=== PATIENT | female | born 2000 | race Caucasian/White ===

== ENCOUNTER → 2023-09-02 14:26 | Outpatient (BNVA) | payer OTHER, SELFPAY | PROVIDERS: Visit Provider Registered Nurse Neonatal Intensive Care | DX: J02.9 Acute pharyngitis, unspecified (principal) | CPT/HCPCS: 87880 ==

== ENCOUNTER → 2023-10-13 13:43 | Outpatient (BNVA) | payer OTHER, SELFPAY | PROVIDERS: Visit Provider Nurse Practitioner Family | DX: R42 Dizziness and giddiness (principal) | CPT/HCPCS: 82962 ==

== ENCOUNTER → 2023-10-15 14:10 | Outpatient (BNVA) | payer OTHER, SELFPAY | PROVIDERS: Visit Provider Family Medicine | DX: R73.03 Prediabetes (principal); E66.01 Morbid (severe) obesity due to excess calories | CPT/HCPCS: 80053; 83036; 84439; 84443; 85025 ==

== ENCOUNTER → 2023-12-10 15:32 | Outpatient (BNVA) | payer OTHER, SELFPAY | PROVIDERS: Visit Provider Nurse Practitioner Family | DX: R39.9 Unspecified symptoms and signs involving the genitourinary system (principal) | CPT/HCPCS: 81000; 87077; 87086; 87184 ==

== ENCOUNTER 2024-02-22 09:39 | Emergency (ER) | payer OTHER, MEDICAID, SELFPAY ==
[2024-02-22] VITALS (26 sets, daily range): BP systolic 124–163; BP diastolic 83–112; PULSE 83–114; RESP 17–18; TEMP 36.5; O2SAT 93–99; BMI 44.6
--- NOTE | 2024-02-22 10:00 | ECG_ITS ---
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 Measurements Intervals [place] Rate: 91 P: 42 WI: 170 QRS: 22 QRSD: 70 T: 15 QT: 362 QTc: 445 Interpretive Statements SINUS RHYTHM Normal EKG No previous ECG available for comparison Electronically Signed On 02-22-2024 11:56:55 CDT by Johnny Cameron M.D. [id number]
--- NOTE | 2024-02-22 10:01 | XRR_ITS ---
PROCEDURE INFORMATION: Exam: XR Chest Exam date and time: 02/22/2024 10:27 AM Age: 23 years old Clinical indication: Shortness of breath; Additional info: SOB TECHNIQUE: Imaging protocol: Radiologic exam of the chest. Views: 1 view. COMPARISON: No relevant prior studies available. FINDINGS: Lungs: Unremarkable. No consolidation. Pleural spaces: Unremarkable. No pleural effusion. No pneumothorax. Heart/Mediastinum: Unremarkable. No cardiomegaly. Bones/joints: Unremarkable. XR/XR chest 1V portable [id number] IMPRESSION: No acute findings.
--- NOTE | 2024-02-22 10:02 | W.ED.SOB ---
HPI - SOB/Dyspnea General: Chief Complaint: Anxiety Stated Complaint: light headed, nausea, fast heartbeat when sleeping Time Seen by Provider: 02/22/24 09:50 Source: patient Mode of arrival: ambulatory Limitations: no limitations History of Present Illness: HPI Narrative: 23-year-old female states that she has been having some nausea vomiting, shortness of breath this morning over the last 6 to 8 hours. States she is also had some anxiety states anytime she tries to lay down she feels like she cannot breathe. She denies any pain anywhere denies any fever. Associated symptoms: Reports nausea, palpitations and vomiting; Deny abdominal pain, chest pain or fever(s) Review of Systems Const: Denies: fever(s), chills, body aches or change in appetite ENMT: Denies: throat pain or dental pain Card: Reports: palpitations; Denies: chest pain Resp: Reports: dyspnea GI: Reports: nausea and vomiting; Denies: abdominal pain or diarrhea Musc: Denies: neck pain or back pain Skin/Breast: Denies: rash Neuro: Denies: headache(s) PFSH ED PFSH: Medical History Anxiety Moderate major depression Hirsutism Pre-diabetes Surgical History History of tonsillectomy Family History Denies family history of Colon cancer Ovarian cancer Diabetes Heart disease Breast cancer Hypertension Uterine cancer Thyroid disease Social History Smoking and tobacco/nicotine status: former use of tobacco/nicotine Alcohol intake: current Substance/Drug Use: never Adopted: No service: No Current occupational exposures/hazards: No Current gender identity: Female Female Reproductive History: Para: 0 Physical Exam Const: COMMON NORMALS: no acute distress, patient oriented x3 and healthy appearing HENMT: COMMON NORMALS: normocephalic and atraumatic HEAD & SCALP: normocephalic and atraumatic Neck/C-Spine: COMMON NORMALS: full ROM and supple Chest: COMMONS NORMALS: normal inspection of the chest Resp: COMMON NORMALS: normal respiratory effort, No retractions, No use of accessory muscles and clear to auscultation bilaterally AUSCULTATION: clear to auscultation bilaterally Cardio: COMMON NORMALS: regular rate, regular rhythm and No murmurs present (Cardio) RATE: regular rate RHYTHM: regular rhythm GI: COMMON NORMALS: non-tender Extremity: COMMON NORMALS: normal to inspection and full ROM Neuro: COMMON NORMALS: patient oriented x3, moves all extremities and no focal motor deficits Psych: COMMON NORMALS: mental status grossly normal, Normal thought process present and cooperative THOUGHT PROCESS: Normal thought process present Skin: COMMON NORMALS: no rashes or lesions noted and no wounds GENERAL SKIN EXAM: no rashes or lesions noted Course Vital Signs: Vital signs: Vital Signs Temperature 97.7 F 02/22/24 09:55 Pulse Rate 109 H 02/22/24 12:20 Respiratory Rate 18 02/22/24 10:12 Blood Pressure 124/83 02/22/24 12:20 Pulse Oximetry 97 02/22/24 12:20 Oxygen Delivery Me thod Room Air 02/22/24 09:55 MDM - SOB/Dyspnea Medical Decision Making Patient presents here with dyspnea along with some nausea vomiting she is well-appearing here did have an elevated D-dimer but CT of the chest is normal abdominal exam is benign she stable for discharge we will prescribe her Zofran for home she is follow-up with PCP and return if worsening. Medical Records I reviewed the patient's medical records. Lab Data I reviewed the patient's lab results. 02/22/24 10:08 02/22/24 10:08 Labs/Radiology: Radiology Impressions Chest X-Ray 02/22/24 10:01 IMPRESSION: No acute findings. Chest CTA 02/22/24 10:42 IMPRESSION: 1. Negative for pulmonary embolism. 2. Negative for right heart strain. 3. Negative for aortic aneurysm or dissection 4. Otherwise negative examination Laboratory Results WBC 16.40 10^3/uL (3.29-11.43) H 02/22/24 10:08 RBC 5.15 10^6/uL (3.85-5.65) 02/22/24 10:08 Hgb 14.40 g/dL (11.27-16.99) 02/22/24 10:08 Hct 42.4 % (36-47) 02/22/24 10:08 MCV 82.3 fl (85-98) L 02/22/24 10:08 MCH 28.0 pg (27-33) 02/22/24 10:08 MCHC 34.0 g/dL (30-55) 02/22/24 10:08 RDW 12.9 % (12.1-15.1) 02/22/24 10:08 Plt Count 475 10^3/cmm (157-399) H 02/22/24 10:08 MPV 9.2 fL (7.4-10.4) 02/22/24 10:08 Neut % (Auto) 84.2 % 02/22/24 10:08 Lymph % (Auto) 10.7 % 02/22/24 10:08 [place] % (Auto) 4.3 % 02/22/24 10:08 Eos % (Auto) 0.1 % 02/22/24 10:08 Baso % (Auto) 0.2 % 02/22/24 10:08 Neut # (Auto) 13.82 10^3/uL (1.8-7.7) H 02/22/24 10:08 Lymph # (Auto) 1.8 10^3/uL (0.8-4.8) 02/22/24 10:08 [place] # (Auto) 0.7 10^3/uL (0.2-0.9) 02/22/24 10:08 Eos # (Auto) 0.0 10^3/uL (0.0-0.8) 02/22/24 10:08 Baso # (Auto) 0.0 10^3/uL (0.0-0.1) 02/22/24 10:08 Nucleated RBC % (auto) 0 % 02/22/24 10:08 Nucleated RBCs # 0.0 /100WBC 02/22/24 10:08 D-Dimer 0.90 ug/mLFEU (0-0.59) H 02/22/24 10:08 Sodium 136 mmol/L (136-145) 02/22/24 10:08 Potassium 3.9 mmol/L (3.5-5.1) 02/22/24 10:08 Chloride 104 mmol/L (98-107) 02/22/24 10:08 Carbon Dioxide 17 mmol/L (22-29) L 02/22/24 10:08 Anion Gap 18.9 (5-19) 02/22/24 10:08 BUN 10 mg/dL (6-20) 02/22/24 10:08 Creatinine 0.7 mg/dL (0.5-0.9) 02/22/24 10:08 GFR Calculation 104.6 mL/min (90-130) 02/22/24 10:08 Glucose 144 mg/dL (65-115) H 02/22/24 10:08 POC Glucose 104 mg/dL (70-110) 02/22/24 10:03 Calculated Osmolality 284 mOsm/kg (285-295) L 02/22/24 10:08 Calcium 9.6 mg/dL (8.5-10.5) 02/22/24 10:08 Total Bilirubin 0.3 mg/dL (0.15-1.2) 02/22/24 10:08 AST 18 U/L (0-32) 02/22/24 10:08 ALT 35 U/L (0-33) H 02/22/24 10:08 Alkaline Phosphatase 99 U/L (35-105) 02/22/24 10:08 NT-Pro-B Natriuret Pep < 36 pg/mL (0-125) 02/22/24 10:08 Total Protein 7.9 g/dL (6.6-8.7) 02/22/24 10:08 Albumin 4.2 g/dL (3.5-5.2) 02/22/24 10:08 Globulin 3.7 g/dL (1.3-4.6) 02/22/24 10:08 HCG, Qual Negative (Negative) 02/22/24 10:08 Urine Color Yellow (Yellow) 02/22/24 10:30 Urine Appearance Clear (CLEAR) 02/22/24 10:30 Urine pH 6.5 (5-7) 02/22/24 10:30 Ur Specific [place] 1.015 (1.005-1.030) 02/22/24 10:30 Urine Protein Neg (Negative) 02/22/24 10:30 Urine Glucose (UA) Norm (Normal) 02/22/24 10:30 Urine Ketones Negative (Negative) 02/22/24 10:30 Urine Blood Neg (Negative) 02/22/24 10:30 Urine Nitrate Negative (Negative) 02/22/24 10:30 Urine Bilirubin Neg (Negative) 02/22/24 10:30 Urine Urobilinogen Norm mg/dL (Negative) 02/22/24 10:30 Ur Leukocyte Esterase Negative (Negative) 02/22/24 10:30 All radiology interpretation(s) finalized by discharge EKG Data EKG 1: I personally reviewed and interpreted this EKG as follows: EKG Interpretation Date: 02/22/24 EKG interpretation time: 10:17 Interpretation: nsr hr [address] or t wave abnormalities qrs 70 qtc 410 Discharge Plan Discharge Patient Disposition: Home Clinical Impression: Dyspnea Condition: Stable Prescriptions: New ondansetron 4 mg tablet,disintegrating 4 mg PO Q6H PRN (Reason: nausea and vomiting) Qty: 14 0RF No Action sumatriptan succinate 25 mg tablet See Rx Instructions PO .COMPLEX Qty: 10 0RF Rx Instructions: take 1 tab at onset of headache; if no relief may repeat 1 tab after at least 2 hrs; max = 4 tabs/24 hr PO fluoxetine 40 mg capsule 40 mg PO DAILY Qty: 60 1RF etonogestrel-ethinyl estradiol 0.12-0.015 mg/24 hr ring 1 vag ring vaginal ONCE Qty: 3 3RF Discharge Orders: Discharge ED (Routine); Ordered 02/22/24 Ordered By: Marcial Carballo Referrals: Bill River MD [Primary Care Provider] - 4-7 days Discharge Diet: Advance as tolerated Discharge Activity: Resume usual activity Patient Instructions: Dyspnea (ED) Coding Level of Care Code ED [employer] for Chg August
[2024-02-22 10:08] LABS: Glucose Point of Care 104 mg/dL (70-110)
[2024-02-22 10:13] LABS: Basophils % 0.2 %; Eosinophils % 0.1 %; Hematocrit 42.4 % (36-47); Lymphocytes # 1.8 10^3/uL (0.8-4.8); Lymphocytes % 10.7 %; Mean Corpuscular Volume 82.3 fl (85-98); Mean Platelet Volume 9.2 fL (7.4-10.4); Monocytes # 0.7 10^3/uL (0.2-0.9); Monocytes % 4.3 %; Neutrophils # 13.82 10^3/uL (1.8-7.7); Neutrophils % 84.2 %; Nucleated Red Blood Cells % 0 %; Platelet Count 475 10^3/cmm (157-399); Red Blood Count 5.15 10^6/uL (3.85-5.65); Red Cell Distribution Width 12.9 % (12.1-15.1)
[2024-02-22] MEDS: ondansetron 2 mg/ML SDV 2 mL 4 MG IVP (10:22)
[2024-02-22] MEDS: LORazepam 2 mg/mL INJ 1 mL 1 MG IVP (10:23)
[2024-02-22 10:40] LABS: Add Urine Microscopic? NO; Charge for UA Resulting for Rev
--- NOTE | 2024-02-22 10:42 | CTR_ITS ---
PROCEDURE INFORMATION: Exam: CTA Chest With Contrast Exam date and time: 02/22/2024 11:26 AM Age: 23 years old Clinical indication: Abnormal findings; Abnormal diagnostic tests; Elevated d-dimer; Additional info: SOB TECHNIQUE: Imaging protocol: Computed tomographic angiography of the chest with contrast. Exam focused on the arteries. 3D rendering (Not supervised by radiologist): MIP and/or 3D reconstructed images were created by the technologist. Radiation optimization: All CT scans at this facility use at least one of these dose optimization techniques: automated exposure control; mA and/or kV adjustment per patient size (includes targeted exams where dose is matched to clinical indication); or iterative reconstruction. Contrast material: OMNI 350; Contrast volume: 73 ml; Contrast route: INTRAVENOUS (IV); COMPARISON: CR (CHEST, ) 02/22/2024 10:27 AM RADIATION DOSE METRICS: Total DLP (mGy-cm): 498.92 FINDINGS: Pulmonary arteries: Normal. No pulmonary emboli. Aorta: Unremarkable. No aortic aneurysm. No aortic dissection. Lungs: Unremarkable. No consolidation. No masses. Pleural spaces: Unremarkable. No pneumothorax. No pleural effusion. Heart: Unremarkable. No cardiomegaly. No pericardial effusion. Lymph nodes: Unremarkable. No enlarged lymph nodes. Bones/joints: Unremarkable. No acute fracture. Soft tissues: Unremarkable. CT/CT angio chest PE protcl [id number] IMPRESSION: 1. Negative for pulmonary embolism. 2. Negative for right heart strain. 3. Negative for aortic aneurysm or dissection 4. Otherwise negative examination
[2024-02-22 10:45] LABS: Alanine Aminotransferase 35 U/L (0-33); Albumin Level 4.2 g/dL (3.5-5.2); Alkaline Phosphatase 99 U/L (35-105); Anion Gap 18.9 (5-19); Aspartate Amino Transferase 18 U/L (0-32); Blood Urea Nitrogen 10 mg/dL (6-20); Calcium 9.6 mg/dL (8.5-10.5); Carbon Dioxide 17 mmol/L (22-29); Chloride 104 mmol/L (98-107); Creatinine Clr Calc Pharmacy 176.4595; Globulin 3.7 g/dL (1.3-4.6); Glomerular Filtration Rate 104.6 mL/min (90-130); Glucose 144 mg/dL (65-115); NT Pro B Type Natriuretic Pept < 36 pg/mL (0-125); Osmolality Calculated 284 mOsm/kg (285-295); Potassium 3.9 mmol/L (3.5-5.1); Sodium 136 mmol/L (136-145); Total Bilirubin 0.3 mg/dL (0.15-1.2); Total Protein 7.9 g/dL (6.6-8.7)
[2024-02-22 11:06] LABS: HCG, Serum Qual Negative (Negative)
[2024-02-22 11:06] LABS: Bilirubin Urine Neg (Negative); Blood Urine Neg (Negative); Glucose Urine UA Norm (Normal); Ketones Urine Negative (Negative); Leukocyte Esterase Urine Negative (Negative); Nitrate Urine Negative (Negative); Protein Urine Neg (Negative); Specific Gravity, Urine 1.015 (1.005-1.030); Urine Appearance Clear (CLEAR); Urine Color Yellow (Yellow); Urobilinogen Urine Norm (Negative); pH Urine 6.5 (5-7)
[2024-02-22] MEDS: iohexol 350 mg/mL 500 mL Btl (per mL) IV (11:32)
== END 2024-02-22 12:37 | disposition home or self-care (01) ==
PROVIDERS: Emergency Provider Emergency Medicine; PCP Family Medicine
DX: R06.00 Dyspnea, unspecified (principal); Z87.891 Personal history of nicotine dependence
CPT/HCPCS: 36416; 71045; 71275; 80053; 81003; 82962; 83880; 84703; 85025; 85378; 93005; 96374; 96375; 99285; J2060; J2405; Q9967

== ENCOUNTER → 2024-03-16 13:34 | Outpatient (BNVA) | payer OTHER, MEDICAID, SELFPAY | PROVIDERS: PCP Family Medicine; Visit Provider Registered Nurse Neonatal Intensive Care | DX: Z20.822 Contact with and (suspected) exposure to COVID-19 (principal) | CPT/HCPCS: 87426 ==

== ENCOUNTER → 2024-03-17 11:05 | Outpatient (BNVA) | payer OTHER, MEDICAID, SELFPAY | PROVIDERS: PCP Family Medicine; Visit Provider Registered Nurse Neonatal Intensive Care | DX: Z20.822 Contact with and (suspected) exposure to COVID-19 (principal) | CPT/HCPCS: 87426 ==

== ENCOUNTER 2024-04-26 11:05 | Outpatient (CLI) | payer OTHER, MEDICAID, SELFPAY | END 2024-04-26 11:06 | disposition home or self-care (01) | LOC: SLEEP 11:07 | PROVIDERS: PCP Family Medicine; Visit Provider Family Medicine | DX: G47.33 Obstructive sleep apnea (adult) (pediatric) (principal); G47.36 Sleep related hypoventilation in conditions classified elsewhere | CPT/HCPCS: G0399 ==

== ENCOUNTER → 2025-02-14 15:00 | Outpatient (BNVA) | payer MEDICAID, SELFPAY | PROVIDERS: PCP Family Medicine; Visit Provider Obstetrics & Gynecology | DX: Z01.419 Encounter for gynecological examination (general) (routine) without abnormal findings (principal) | CPT/HCPCS: 87624 ==